=== PATIENT | female | born 1945 ===

== ENCOUNTER 2016-12-16 05:16 | Inpatient (IN) | payer OTHER, MEDICARE ==
[~2016-12-16] VITALS: Ht 160 cm; Wt 56.7 kg
[~2016-12-16 05:16] MED LIST: ATORVASTATIN CA10 M1 PO; CALCIUM 500 +1 EAC5 PO; GLYBURIDE5 M1 PO; LANTUS SOL100 UNIT/1 SC; MOBIC15 M1 PO; MULTIVITAMINS1 EAC9 PO; OMEPRAZOLE20 M2 PO; SINGULAIR10 M1 PO
--- NOTE | 2016-12-16 08:25 | Patient Discharge Instructions ---
Discharge Instructions General Discharge Information You were seen/treated for: Left hip pain You had these procedures: 12/16/2016 left total hip arthroplasty Watch for these problems: Redness, swelling, fever, signs of infection. Uncontrolled pain, Excessive bleeding. Decreased range of motion or unable to bear weight. Chest pain, shortness of breath. Call Surgeon to remove: Stitches Do not soak the wound: Yes Other wound care: Daily dry dressing changes Diet Continue normal diet: Yes Activity Activity Self Limited: Yes Activity Limited to: Weight bear as tolerated Other activity limits: Daily physical therapy Acute Coronary Syndrome Inclusion Criteria At DC or during hospital stay patient has or had the following: ACS DIAGNOSIS No Discharge Core Measures Meds if any: Prescribed or Continued at Discharge Meds if any: NOT Prescribed or Continued at Discharge Congestive Heart Failure Inclusion Criteria At DC or during hospital stay patient has or had the following: CHF DIAGNOSIS No Discharge Core Measures Meds if any: Prescribed or Continued at Discharge Meds if any: NOT Prescribed or Continued at Discharge Cerebrovascular accident Inclusion Criteria At DC or during hospital stay patient has or had the following: CVA/TIA Diagnosis No Discharge Core Measures Meds if any: Prescribed or Continued at Discharge Meds if any: NOT Prescribed or Continued at Discharge Venous thromboembolism Inclusion Criteria VTE Diagnosis No VTE Type NONE VTE Confirmed by (Test) NONE Discharge Core Measures - Per Current guidelines, there needs to be overlap - treatment for the first 5 days of Warfarin therapy. - If discharged on Warfarin prior to 5 days of - overlap therapy, the patient will need to be - assessed for post discharge needs including - *Post discharge parental anticoagulation - *Warfarin and/or parental anticoagulation education - *Follow up date to check INR post discharge At least 5 days overlap therapy as Inpatient No Meds if any: Prescribed or Continued at Discharge Note: Overlap Therapy is Warfarin and Anticoagulant Meds if any: NOT Prescribed or Continued at Discharge
[2016-12-16] MEDS ORDERED: DOCUSATE SODIU100 M3 PO (08:28)
[2016-12-16] MEDS ORDERED: MORPHINE SULFAT15 M3 PO (08:28)
[2016-12-16] MEDS ORDERED: MIRALAX17 G1 PO (08:28)
[2016-12-16] MEDS ORDERED: DILAUDID2 M1 PO (08:28)
[2016-12-16] MEDS ORDERED: ASPIRIN325 M2 PO (08:28)
--- NOTE | 2016-12-16 08:30 | Admission Core Measures ---
Admission Meds I reviewed the following Meds: Current Medications Sig/Lonnie Start time Last Medication Dose Stop Time Status Admin Acetaminophen 975 MG ONCE 12/16 0000 NR (Tylenol) 12/16 2358 Atorvastatin Calcium 10 MG DAILY 12/16 1000 UNVr (Lipitor) Cefazolin Sodium 2,000 MG ONCE 12/16 0000 NR (Kefzol-Ancef Inj) 12/16 2358 Glyburide 5 MG .[D] 12/16 0830 UNVr (Diabeta) Insulin Detemir 10 UNITS AT BEDTIME 12/16 2200 UNVr (Levemir) Montelukast Sodium 10 MG DAILY 12/16 1000 UNVr (Singulair) Omeprazole 20 MG DAILY 12/16 1000 UNVr (Prilosec) Oxycodone HCl 10 MG ONCE 12/16 0000 NR (Roxicodone) 12/16 2358 Acute Coronary Syndrome Inclusion Criteria ACS Diagnosis No Inpatient Core Measures LDL Reminder: If No, please order W/I first 24hr of stay Congestive Heart Failure Inclusion Criteria CHF Diagnosis No Cerebrovascular accident Inclusion Criteria CVA/TIA Diagnosis No Inpatient Core Measures Bedside Swallow Eval Reminder: If BSE failed, place ST order Antithrombotic Reminder: Order Antithrombotic Medication by end of day 2 Antithrombotic Reminder: Document Reason Antithrombotic Not ordered by end of day 2 AFIB/Flutter Reminder: If Present, add to problem list AFIB/Flutter Reminder: Order Anticoag Medication for pts with AFIB/Flutter Atherosclerosis Reminder: If Present, add to problem list LDL Reminder: If No, please order W/I first 24hr of stay PT Order Reminder: If No, please order Venous thromboembolism Inpatient Core Measures VTE Risk Factors: Age > 40, Surgery VTE Prophylaxis Ordered [facility] prophylaxis d/t No contraindications No VTE Pharm Prophylaxis d/t No contraindications Inclusion Criteria - Per Current guidelines, there needs to be overlap - treatment for the first 5 days of Warfarin therapy. - Parenteral Anticoagulation (IV or SC) needs to be - given along with Warfarin therapy. VTE Diagnosis No VTE Type NONE VTE Confirmed by (Test) NONE Problem List As ranked by this Provider includes Assessment & Plan 1. Status post total hip replacement, left HOME MEDS Home Med List Aspirin (Aspirin*) 325 MG TABLET 1 TAB PO BID BLOOD THINNER Atorvastatin Calcium 10 MG TABLET 1 TAB PO DAILY CHOLESTEROL (Reported) Calcium Carbonate/Vitamin D3 (Calcium 500 + D Tablet) 500 MG-400 TABLET 1 TAB PO BID SUPPLEMENT (Reported) Docusate Sodium 100 MG CAPSULE 1 CAP PO BID PRN CONSTIPATION Glyburide 5 MG TABLET 1 TAB PO D DIABETES (Reported) Hydromorphone HCl (Dilaudid) 2 MG TABLET 1-2 TAB PO Q4-6H PRN PAIN Insulin Glargine,Hum.rec.anlog (Lantus Solostar) 100 UNIT/ML (3 ML) INSULN.PEN 10 UNIT SC QPM DIABETES (Reported) Meloxicam (Mobic) 15 MG TABLET 1 TAB PO DAILY PAIN (Reported) Montelukast Sodium (Singulair) 10 MG TABLET 1 TAB PO DAILY ALLERGIES ( Reported) Morphine Sulfate (Morphine Sulfate ER) 15 MG TABLET.ER 1 TAB PO BIDP PAIN Multiple Vitamin (Multivitamins) 1 EACH TABLET 1 TAB PO DAILY SUPPLEMENT ( Reported) Omeprazole 20 MG CAPSULE.DR 1 CAP PO DAILY REFLUX (Reported) Polyethylene Glycol 3350 (Miralax) 17 GRAM POWD.PACK 1 PAC PO DAILY PRN CONSTIPATION
--- NOTE | 2016-12-16 08:32 | Surg Short-stay <48hrs Dis Sum ---
Visit Information Visit Dates Admission Date: 12/16/16 Discharge Date: 12/17/16 Surgical Short Stay DC Summary Admission Diagnosis: Left hip pain Final Diagnosis: Same Procedure(s): 12/16/2016 left total hip arthroplasty Summary/Significant Findings: Patient admitted to floor following procedure below. Patient ambulated with PT upon arrival to the floor. Patient continued to progress well. Upon discharge patient is afebrile, tolerating diet, pain controlled, ambulating well with rolling walker and PT. Condition at Discharge: Good Discharge Disposition: home health services Discharge instructions provided to patient/family: Yes Post discharge follow-up plan: Call office to schedule/confirm appointment.
--- NOTE | 2016-12-16 10:31 | RADIOLOGY REPORT ---
EXAMINATION: XR HIP, LEFT CLINICAL INFORMATION: Status post left hip replacement COMPARISON: None TECHNIQUE: AP and crosstable lateral views of the left hip. FINDINGS: The femoral head prosthesis is well centered within the acetabular cup which has an estimated lateral version of 47 degrees and anteversion of approximately 30 degrees. The tip of the femoral stem is positioned within the medullary cavity of the proximal femoral diaphysis and there is no acute periprosthetic fracture. Postoperative soft tissue gas is present in the proximal thigh/hip region. The visualized lumbosacral spinal fusion hardware is intact. There are laminectomy defects in the incompletely visualized lower lumbar spine. IMPRESSION: There is satisfactory positioning and alignment of components of the left total hip arthroplasty.
[2016-12-16 11:10] VITALS: BP 130/70
--- NOTE | 2016-12-16 11:37 | NUR ---
PT ARRIVED VIA STRETCHER, DROWSY BUT AROUSABLE, 2L NC, REPORTS NUMBNESS TO LLE, + L PEDAL PULSE, DERAS IN PLACE, #20 LF W/ NS @ 75ML/HR RUNNING, VSS, NO C/O PAIN, TOLERATED SIPS OF WATER, ALPS IN PLACE, ORIENTED TO ROOM AND CALL LIGHT, PT PRIMARILY PORTUGESE SPEAKING, DAUGHTER @ BEDSIDE, PT'S CANE LEFT IN PACU, QUALITY CONTROL ASSESSOR BRYANNA NOTIFIED AND CANE SENT BACK UP TO FLOOR. WILL CONTINUE TO MONITOR.
[2016-12-16] MEDS ORDERED: TRAMADOL HCL50 M1 PO (12:48)
--- NOTE | 2016-12-16 12:55 | PN- Orthopedic ---
Subjective Subjective: Sleep but awakens post op Pt speaks portugese exclusively, daughter at bedside translating. No pain or other complaints. No nausea Objective Vital Signs and I&Os Vital Signs Date Time Temp Pulse Resp B/P Pulse O2 O2 Flow FiO2 Ox Delivery Rate 12/16 1110 97 Nasal 2.0L Cannula 12/16 1110 97.5 72 18 130/70 97 Nasal 2.0L Cannula Intake & Output 12/16 1600 12/16 0800 12/16 0000 12/15 1600 12/15 0000 Intake Total Output Total Balance Patient 125 lb Weight Physical Exam: vss, afebrile General: alert Chest: clear anteriorly bilaterally Abd: soft, good bs Ext: warm, no edema, positive sensate, no calf tenderness Wound: dressed, dry Assessment/Plan Assessment/Plan 71 yo female with numerous medical comorbidities s/p L JULISSA - anterior approach asa 325mg po bid for dvt ppx PT - wbat dc burciaga - await void tramadol for pain as pt is very sensitive to opioids Core Measures/Miscellaneous Venous Thromboembolism VTE Risk Factors: Age > 40, Surgery VTE Contraindications: No Contraindications VTE Prophylaxis Ordered Inpt: [facility] VTE Diagnosis: No VTE Type: NONE VTE Confirmed by (Test): NONE Beta Anita Is Beta Anita a Home Med? No Antibiotics Is Patient on Antibiotics? Yes If Yes: prophylaxis (24 hrs post op)
[2016-12-16 14:28] VITALS: BP 120/60
--- NOTE | 2016-12-16 15:59 | Operative Report ---
Operative/Inv Procedure Report Surgery Date: 12/16/16 Name of Procedure: Left total hip replacement Pre-Operative Diagnosis: Primary left hip DJD Post-Operative Diagnosis: Same Estimated Blood Loss: 250 Surgeon/Calender Tender: EDWIN WEEKS,DEREK Winters Anesthesia: general endotracheal tube Operative/Procedure Note Note: Description of Procedure: The patient was taken to the operating room and positively identified. After induction of general anesthesia and administration of appropriate pre-operative antibiotics, the patient was positioned supine on the operating room table and all bony prominences were well padded. After performing a surgical timeout, the left lower extremity was prepped and draped in the usual sterile fashion. A direct anterior approach was made to the left hip. The incision was carried sharply through superficial soft tissues to the level of the fascia. Meticulous hemostasis was maintained with Bovie electocautery. The fascia over the tensor fascia ryan muscle was opened sharply and the interval between the TFL and the sartorius was entered bluntly taking care to stay lateral to the lateral femoral cutaneous nerve. Retractors were placed around the femoral neck and the pericapsular fat was identified. The ascending branches of the lateral femoral circumflex vessels were identified and carefully coagulated. The pericapsular fat and anterior capsule were then resected. A napkin ring osteotomy was performed and the femoral head was removed without difficulty. Attention was then turned to the acetabulum. After appropriate placement of retractors, the acetabulum was exposed. Soft tissue was cleaned from the acetabular margin and notch. Overhanging osteophytes were removed and the teardrop was exposed. The acetabulum was then sequentially reamed to accept a 54 mm Preet Tritanium hemispherical solid back shell. This was impacted into place in the appropriate position and fitted with a 36 mm Trident X3 zero degree polyethylene insert. Attention was then turned to the femur. After performing the appropriate ligament releases, the proximal femur was exposed. It was then sequentially broached to accept a size 4 Dundas accolade 2 stem. This was trialed for leg length and stability. The trial component was removed and the final component was impacted into place. The trunnion was carefully cleaned and fit with a 36 mm, +0 Biolox delta ceramic femoral head. The hip was reduced and put through a full range of motion and found to be stable. The articular space was then irrigated with sterile saline. The periarticular soft tissues were infilitrated with Marcaine. The fascial layer was closed with interrupted #1 vicryl suture and the skin was re-approximated with interrupted 2 -0 vicryl. The skin was closed with a running 3-0 V-Lock suture. Steri-strips and a sterile dressing were applied. The patient was awakened and taken to the recovery room in satisfactory condition.
[2016-12-16 16:09] VITALS: BP 102/60
[2016-12-16 18:22] VITALS: BP 104/56
[2016-12-16 22:13] VITALS: BP 106/60
[2016-12-17 02:14] VITALS: BP 110/64
[2016-12-17 06:44] VITALS: BP 112/64
--- NOTE | 2016-12-17 08:27 | PN- Orthopedic ---
Subjective Subjective: Portugese speaking. Receiving oral dilaudid for pain control. Tolerating clears. Out of bed with PT post-op yesterday, with plan for discharge to home. Waiting to speak with her daughter, Laina. Objective Vital Signs and I&Os Vital Signs Date Time Temp Pulse Resp B/P Pulse O2 O2 Flow FiO2 Ox Delivery Rate 12/17 0544 99.1 83 18 112/64 92 Room Air 12/17 0214 98.6 73 18 110/64 94 Room Air 12/16 2213 98.3 75 20 106/60 92 Room Air 12/16 1822 97.9 87 20 104/56 96 Room Air 12/16 1609 98.2 80 20 102/60 95 Room Air 12/16 1428 97.9 74 18 120/60 97 Room Air 12/16 1110 97 Nasal 2.0L Cannula 12/16 1110 97.5 72 18 130/70 97 Nasal 2.0L Cannula Intake & Output 12/17 1600 12/17 0800 12/17 0000 12/16 1600 12/16 0800 / 0000 Intake Total 540 420 Output Total 850 825 Balance -850 540 -405 Intake, IV 300 300 Intake, Oral 240 120 Number 0 0 Bowel Movements Output, Urine 850 825 Patient 125 lb Weight Physical Exam: General - alert. comfortable. no acute distress. Lungs - clear bilaterally. no w/r/r. Cardiac - s1s2. reg. Abdomen - soft. nontender. Extremities - warm bilaterally. no c/c/e. venodynes active b/l. left thigh dressing c/d/i. nvi. calves soft and nontender b/l. Assessment/Plan Assessment/Plan This 71 year old white egyptian speaking female POD#1 s/p L JULISSA - anterior approach tolerating diet. d/c iv fluids continue PT. wbat. f/u recommendations asa 325mg bid - dvt ppx tramadol / dilaudid prn pain control d/c planning, ?today will speak with Laina, the patient's daughter re: dispo Core Measures/Miscellaneous Venous Thromboembolism VTE Risk Factors: Age > 40, Surgery VTE Contraindications: No Contraindications VTE Prophylaxis Ordered Inpt: [facility] VTE Diagnosis: No VTE Type: NONE VTE Confirmed by (Test): NONE Beta Anita Is Beta Anita a Home Med? No Antibiotics Is Patient on Antibiotics? Yes If Yes: prophylaxis (24 hrs post op)
[2016-12-17 09:13] LABS: ABSOLUTE BASOPHIL COUNT 0 /CUMM (0.0-0.2); ABSOLUTE EOSINOPHIL COUNT 0 /CUMM (0.0-0.7); ABSOLUTE GRANULOCYTE CT 5.1 /CUMM (1.4-6.5); ABSOLUTE LYMPH COUNT 2.2 /CUMM (1.2-3.4); ABSOLUTE MONOCYTE COUNT 1.1 /CUMM (0.10-0.60); BASOPHIL % 0.2 % (0.0-2.0); EOSINOPHIL % 0.6 % (0-5); GRANULOCYTE % 60.4 % (42.2-75.2); HEMATOCRIT 25.9 % (37-47); MEAN CORPUSCULAR HGB 27.8 PG (27.0-31.0); MEAN CORPUSCULAR HGB CONC 33.7 G/DL (33.0-37.0); MEAN CORPUSCULAR VOLUME 82.2 FL (81.0-99.0); MEAN PLATELET VOLUME 7.2 FL (7.4-10.4); PLATELET COUNT 222 /CUMM (130-400); RBC DISTRIBUTION WIDTH 14.2 % (11.5-14.5); RED BLOOD CELL CT 3.15 /CUMM (4.20-5.40); WHITE BLOOD CELL COUNT 8.5 /CUMM (4.8-10.8)
[2016-12-17 10:11] VITALS: BP 110/60
[2016-12-17 13:39] VITALS: BP 112/70
== END 2016-12-17 16:30 | disposition home health service (06) | DRG 470 ==
LOC: ENRESERVTM → ENRESERVDT → SDA 05:16 → 2NA 05:16
PROVIDERS: Physician Assistant Surgical; ADMIT Orthopaedic Surgery
PROC: 0SRB04A Replacement of Left Hip Joint with Ceramic on Polyethylene Synthetic Substitute, Uncemented, Open Approach (ICD-10-PCS; principal; 2016-12-16)
DX: M16.12 Unilateral primary osteoarthritis, left hip (principal); E11.9 Type 2 diabetes mellitus without complications; I10 Essential (primary) hypertension; K21.9 Gastro-esophageal reflux disease without esophagitis; E78.5 Hyperlipidemia, unspecified
CPT/HCPCS: 2NASP; 73502-LT; 82436; 88304; 97110-GO; 97116-GO; 97161-GP; 97530-GO; J0690; J0735; J1815; J2405